=== PATIENT | female | born 2000 | race American Indian/Alaskan Native ===

== ENCOUNTER 2021-01-02 17:36 | Emergency (ER) | payer MEDICAID ==
[2021-01-02] MEDS ORDERED: TETANUS,DIPH,PERTUSS(ACELL) VACCINE 0.5 ML SYRINGE IM ONE (18:03)
--- NOTE | 2021-01-02 18:19 | Emergency Department Report ---
ED Animal Bite HPI - General Chief Complaint: Animal Bite Stated Complaint: ANIMAL BITE ON ARM AND FINGERS Time Seen by Provider: 01/02/21 17:59 Source: patient Mode of arrival: Ambulatory Limitations: No Limitations - History of Present Illness Initial Comments: Patient is a 20-year-old female presents emergency room with complaints of a dog bite that occurred 2 days ago. Patient states that she got a new puppy and it was fighting with her other dog. She states that she was picking them up and the dog accidentally bit her. She states that she was bit to her left fingers and left wrist. She states that she does have some pain in her left middle finger. She is unsure of her last tetanus immunization. pt is unsure of her dogs last rabies vaccination. No past medical history. No allergies to medications. - Related Data Previous Rx's Medication Instructions Recorded Last Taken Type Amoxicillin/Potassium Clav 1 each PO BID 10 Days #20 tablet 01/02/21 Unknown Rx [Augmentin 875-125 Tablet] Mupirocin [Bactroban 2% OINT] 1 applic TP TID #1 tube 01/02/21 Unknown Rx Allergies Allergy/AdvReac Type Severity Reaction Status Date / Time No Known Allergies Allergy Verified 01/02/21 17:58 ED Review of Systems ROS: Stated complaint: ANIMAL BITE ON ARM AND FINGERS Other details as noted in HPI Comment: All other systems reviewed and negative ED Past Medical Hx - Past Medical History Previous Medical History?: No - Surgical History Past Surgical History?: No - Social History Smoking Status: Never Smoker Substance Use Type: None - Medications Home Medications: Home Medications Medication Instructions Recorded Confirmed Last Taken Type Amoxicillin/Potassium Clav 1 each PO BID 10 Days #20 tablet 01/02/21 Unknown Rx [Augmentin 875-125 Tablet] Mupirocin [Bactroban 2% OINT] 1 applic TP TID #1 tube 01/02/21 Unknown Rx ED Physical Exam - General Limitations: No Limitations General appearance: alert, in no apparent distress - Head Head exam: Present: atraumatic, normocephalic - Eye Eye exam: Present: normal appearance - ENT ENT exam: Present: mucous membranes moist - Extremities Exam Extremities exam: Present: other (small superficial abrasions/punctures to the left posterior wrist, no edema, no erythema, no drainage, no bony ttp, FROM, there are multiple abrasions to the left digits, there is mild edema and erythema to the left middle finger, FROM of the digits, no fluctuance, no drainage, neurovascularly intac) - Neurological Exam Neurological exam: Present: alert, oriented X3 - Psychiatric Psychiatric exam: Present: normal affect, normal mood - Skin Skin exam: Present: warm, dry ED Course Vital Signs 01/02/21 01/02/21 17:57 19:03 Temperature 98.0 F 98.6 F Pulse Rate 77 83 Respiratory 16 16 Rate Blood Pressure 119/75 Blood Pressure 127/81 [Right] O2 Sat by Pulse 98 98 Oximetry - Reevaluation(s) Reevaluation #1: 01/02/21 20:45 Ordering Physician: NELSON VILLALOBOS Date of Service: 01/02/21 Procedure(s): XR hand 3+V LT Accession Number(s): [id number] cc: NELSON VILLALOBOS Fluoro Time In Minutes: LEFT HAND 4 VIEWS 1812 INDICATION: dog bite COMPARISON: None available. FINDINGS: Artifact from an artificial nail is seen in the middle finger distal phalanx. No soft tissue foreign bodies are seen. No soft tissue gas is noted. No fractures or dislocations are seen. Signer Name: Polo Polanco MD Signed: 01/02/2021 6:28 PM Workstation Name: [id number] Transcribed By: AYO Dictated By: Polo Polanco MD Electronically Authenticated By: Polo Polanco MD Signed Date/Time: 01/02/211827 DD/ 24 TD/TT: - Consultations Consultation #1: Patient is a 20-year-old female presents emergency room with complaints of a dog bite that occurred 2 days ago. Patient states that she got a new puppy and it was fighting with her other dog. She states that she was picking them up and the dog accidentally bit her. She states that she was bit to her left fingers and left wrist. She states that she does have some pain in her left middle finger. She is unsure of her last tetanus immunization. she states she is unsure when her dogs last rabies vaccination was. No past medical history. No allergies to medications. Vitals are normal. On exam:small superficial abrasions/punctures to the left posterior wrist, no edema, no erythema, no drainage, no bony ttp, FROM, there are multiple abrasions to the left digits, there is mild edema and erythema to the left middle finger, FROM of the digits, no fluctuance, no drainage, neurovascularly intact. X-ray left hand: FINDINGS: Artifact from an artificial nail is seen in the middle finger distal phalanx. No soft tissue foreign bodies are seen. No soft tissue gas is noted. No fractures or dislocations are seen. Examination consistent with dog bite with mild cellulitis. No signs of abscess or infectious tenosynovitis at this time. Patient given tetanus immunization. Given prescription for medication. Patient states her dog is an inside dog and has not been showing any rabid signs. She states that she will observe the dog and quarantine at home for 10 days. She declines rabies vaccination at this time. Discussed all results with patient and answered questions and discussed wound care. Advised patient Please use medication as prescribed. Please keep area clean, dry, covered. Wash with antibacterial soap and water twice a day and pat dry. No hot tub or pool. Follow-up with a primary care doctor. Return to emergency room for any new or worsening symptoms. Critical care attestation.: If time is entered above; I have spent that time in minutes in the direct care of this critically ill patient, excluding procedure time. ED Disposition Clinical Impression: Dog bite Qualifiers: Encounter type: initial encounter Qualified Code(s): W54.0XXA - Bitten by dog, initial encounter Cellulitis Qualifiers: Site of cellulitis: extremity Site of cellulitis of extremity: upper extremity Laterality: left Qualified Code(s): L03.114 - Cellulitis of left upper limb Disposition: 01 HOME / SELF CARE / HOMELESS Is pt being admited?: No Does the pt Need Aspirin: No Condition: Stable Instructions: Animal Bite, Adult, [id number], Cellulitis, Adult, [id number] Additional Instructions: Please use medication as prescribed. Please keep area clean, dry, covered. Was h with antibacterial soap and water twice a day and pat dry. No hot tub or pool. Follow-up with a primary care doctor. Return to emergency room for any new or worsening symptoms. Prescriptions: Amoxicillin/Potassium Clav [Augmentin 875-125 Tablet] 1 each PO BID 10 Days #20 tablet Mupirocin [Bactroban 2% OINT] 1 applic TP TID #1 tube Referrals: PHONG ARCE MD [Staff Physician] - 3-5 Days [facility] [Provider Group] - 3-5 Days Time of Disposition: 18:36 Print Language: MOROCCAN
--- NOTE | 2021-01-02 18:33 | XRay Report ---
LEFT HAND 4 VIEWS 181 INDICATION: dog bite COMPARISON: None available. FINDINGS: Artifact from an artificial nail is seen in the middle finger distal phalanx. No soft tissu e foreign bodies are seen. No soft tissue gas is noted. No fractures or dislocations are seen. Signer Name: Polo Polanco MD Signed: 01/02/2021 6:28 PM Workstation Name: [id number]
[2021-01-02 19:04] VITALS: BP 119/75
== END 2021-01-02 19:04 | disposition home or self-care (01) ==
LOC: ED 17:36
DX: S61.259A Open bite of unspecified finger without damage to nail, initial encounter (principal); L03.012 Cellulitis of left finger; S61.552A Open bite of left wrist, initial encounter
CPT/HCPCS: 90471; 90715; 99283

== ENCOUNTER 2021-11-13 17:40 | Emergency (ER) | payer MEDICAID | END 2021-11-13 20:45 | disposition left against medical advice (07) | LOC: ED 17:40 | DX: S61.411A Laceration without foreign body of right hand, initial encounter (principal); Z53.21 Procedure and treatment not carried out due to patient leaving prior to being seen by health care provider; W26.8XXA Contact with other sharp object(s), not elsewhere classified, initial encounter; Y93.89 Activity, other specified; Y92.89 Other specified places as the place of occurrence of the external cause; Y99.8 Other external cause status ==